=== PATIENT | male | born 1950 | race Caucasian/White ===

== ENCOUNTER 2020-12-22 15:16 | Emergency (ER) | payer MEDICARE, SELFPAY ==
[2020-12-22 15:38] VITALS: BP 139/86; PULSE 93; RESP 16; TEMP 36.9; O2SAT 98
--- NOTE | 2020-12-22 15:44 | ED.WOUNDLAC ---
HPI - Wound/Laceration General Chief Complaint: Wound/Laceration Stated Complaint: facial laceration Time Seen by Provider: 12/22/20 15:44 Source: patient and RN notes reviewed Mode of arrival: ambulatory Limitations: no limitations History of Present Illness HPI narrative: 70 year old male presents to [facility] care with complaints of facial laceration to his left cheek along Zygomatic area where he tripped on area rug and fell and hit face on the floor 2 hours ago. Patient has 3.5cm length by 0.5 cm width laceration on left cheek area. Patient states that his tetanus is up to date, had in 2019. Patient denies any loss of consciousness or any injuries at this time. Patient denies any visual changes, noted bruising under left eye region. Onset (ago): hour(s) (2 hours prior) Location: face Place: home Patient tetanus UTD: Yes Context: accidental Associated symptoms: none Treatments prior to arrival: other (gauze ) Related Data Home Medications Medication Instructions Recorded Confirmed aspirin 81 mg tablet,delayed 81 mg PO DAILY 10/16/19 12/22/20 release duloxetine 60 mg capsule,delayed 60 mg PO DAILY 10/16/19 12/22/20 release ferrous sulfate [Iron (ferrous 325 mg PO DAILY 12/22/20 12/22/20 sulfate)] fexofenadine [Elizabeth] 180 mg PO DAILY 12/22/20 12/22/20 finasteride 5 mg PO DAILY 12/22/20 12/22/20 lisinopril 20 mg PO DAILY 12/22/20 12/22/20 lovastatin 20 mg PO DAILY 12/22/20 12/22/20 nfxmyzcd-ywa-KS-lycopen-lutein 1 tablet PO DAILY 12/22/20 12/22/20 [Centrum Silver Men] topiramate 100 mg PO BID 12/22/20 12/22/20 triamcinolone acetonide [Nasacort] 2 spray INTRANASAL DAILY 12/22/20 12/22/20 Allergies Allergy/AdvReac Type Severity Reaction Status Date / Time Cephalosporins Allergy Intermediate RASH Verified 12/22/20 15:41 Review of Systems Review of Systems: Narrative: CONSTITUTIONAL: Denies fever, chills, or sweats. EYES: Denies visual changes, redness, or discharge. Swelling under left eye with flap laceration over left zygomatic area which occurred 2 hours prior to arrival ENT: Denies rhinorrhea, congestion, sore throat, or otalgia. CARDIOVASCULAR: Denies chest pain, palpitations, or edema. RESPIRATORY: Denies cough or dyspnea. GASTROINTESTINAL: Denies abdominal pain, nausea, vomiting, or diarrhea. GENITOURINARY: Denies dysuria or hematuria. SKIN: Denies rash or itching. MUSCULOSKELETAL: Denies acute back pain, joint pain, or myalgia. NEUROLOGIC: Denies headache, numbness, or weakness. PSYCHIATRIC: Positive for history of anxiety or depression. All systems reviewed & are unremarkable except as noted in HPI and below PMFSH Past Medical History Medical History (Updated 12/24/20 @ 14:44 by Deonna Boyer NP) Chronic anemia Depression Facial laceration Hyperglycemia Hyperlipidemia Hypertension Sleep apnea Surgical History Surgical History (Updated 12/24/20 @ 14:32 by Deonna Boyer NP) Gastric bypass status for obesity History of orthopedic surgery bilateral hips History of spinal surgery Hx of inguinal hernia repair Family History Family History (Updated 12/24/20 @ 14:30 by Deonna Boyer NP) Mother Patient's mother is Grandparent Hypertension Carcinoma of colon Father Lung cancer Social History Social History (Updated 12/24/20 @ 14:30 by Deonna Boyer NP) Smoking status: Former smoker Second hand tobacco smoke exposure: No Smoking end date: 09/19/80 Alcohol intake: current Drinks per week: 2 Substance use: never Living arrangements: alone Gender identity (if verbalized by the patient): Male Comments At time of signature, agree with nursing past medical, surgical, social and family history. There is no relevant family history pertinent to the presenting complaint Exam Narrative: Exam Narrative: GENERAL: Well-appearing, well-nourished, and in no acute distress. HEAD: Normocephalic, atraumatic.laceration under left eye on
== END 2020-12-22 16:40 | disposition home or self-care (01) ==
PROVIDERS: Emergency Provider Registered Nurse; PCP Internal Medicine
DX: S01.412A Laceration without foreign body of left cheek and temporomandibular area, initial encounter (principal); W18.09XA Striking against other object with subsequent fall, initial encounter; Z87.891 Personal history of nicotine dependence; Z98.84 Bariatric surgery status; E78.5 Hyperlipidemia, unspecified; I10 Essential (primary) hypertension; G47.30 Sleep apnea, unspecified; Z79.82 Long term (current) use of aspirin
CPT/HCPCS: 12013; 99213; G0463

== ENCOUNTER 2022-10-29 07:57 | Outpatient (CLI) | payer MEDICARE, SELFPAY | END 2022-10-29 07:58 | disposition home or self-care (01) | PROVIDERS: PCP Internal Medicine; Visit Provider Otolaryngology | DX: H93.13 Tinnitus, bilateral (principal); H90.3 Sensorineural hearing loss, bilateral | CPT/HCPCS: 92557; 92567 ==

== ENCOUNTER 2023-01-26 08:52 | Outpatient (CLI) | payer MEDICARE, SELFPAY ==
--- NOTE | ~2023-01-26 | MR_ITS ---
EXAMINATION: MR brain/brain stem wo con DATE: 01/26/2023 09:32 INDICATION: Ataxia TECHNIQUE: Magnetic resonance imaging (MRI) of the brain and brainstem was performed without intraven ous contrast. Sequences included sagittal and axial T1-weighted SE, axial diffusion-weighted FS SE, a xial 3D SWAN, axial T2-weighted FLAIR, and axial T2-weighted FSE. Apparent diffusion coefficient (ADC ) maps were created. COMPARISON: None. FINDINGS: There are no areas of restricted diffusion to suggest acute infarction. No intracranial hemorrhage or abnormal intracranial mass lesion. There are scattered areas of nonspecific increased T2-weighted si gnal intensity in the cerebral white matter, predominantly involving the deep and periventricular whi te matter which is within normal limits for age. There are no intraparenchymal signal abnormalities s een on the other pulse sequences. The ventricles are symmetric and normal in size. There are no abnor mal extra-axial fluid collections. Flow voids are seen in the cerebral arteries on the T2-weighted se quences consistent with their expected patency. Mild mucosal thickening the paranasal sinuses with mu cous retention cyst at the posterior left maxillary sinus. Visualized orbits and soft tissues are unr emarkable. IMPRESSION: 1. Normal aging brain. No acute intracranial process. Reviewed, dictated and finalized at location A.
== END 2023-01-26 08:53 | disposition home or self-care (01) ==
PROVIDERS: PCP Internal Medicine; Visit Provider Student in an Organized Health Care Education/Training Program
DX: R27.0 Ataxia, unspecified (principal)
CPT/HCPCS: 70551

== ENCOUNTER → 2023-09-02 11:10 | Outpatient (CLI) | payer MEDICARE, SELFPAY ==
--- NOTE | ~2023-09-02 | XR_ITS ---
EXAMINATION: XR hand BI arthritis min 3V DATE: 09/02/2023 11:40 INDICATION: Unspecified osteoarthritis, unspecified site. TECHNIQUE: 4 views of right hand and 4 views of left hand on a total of 7 radiographs were obtained. COMPARISON: None. FINDINGS: RIGHT HAND: Bone alignment is normal. No fracture. There is moderate osteoarthritis of distal radioul lorrie joint, severe osteoarthritis of triscaphe joint, moderate osteoarthritis of second metacarpophala ngeal joint, and mild osteoarthritis of many of the other metacarpophalangeal joints and interphalang eal joints. There is heterotopic ossification at radial aspect of fourth distal interphalangeal joint . LEFT HAND: Bone alignment is normal. No fracture. There is mild osteoarthritis of triscaphe joint and first carpometacarpal joint. There is moderate osteoarthritis of first-third metacarpophalangeal gio nts and mild osteoarthritis of many of the interphalangeal joints. IMPRESSION: 1. Polyarticular osteoarthritis. Reviewed, dictated and finalized at location A. WINDER REPAIR
== END ==
PROVIDERS: PCP Internal Medicine; Visit Provider Internal Medicine
DX: R89.9 Unspecified abnormal finding in specimens from other organs, systems and tissues (principal); Z71.89 Other specified counseling; Z79.899 Other long term (current) drug therapy; M19.041 Primary osteoarthritis, right hand; M19.042 Primary osteoarthritis, left hand
CPT/HCPCS: 73130

== ENCOUNTER 2024-05-25 08:39 | Outpatient (CLI) | payer MEDICARE, SELFPAY ==
--- NOTE | ~2024-05-25 | US_ITS ---
Renal-Bladder ultrasound Clinical History: Chronic kidney disease Technique: Real-time sonographic imaging of the kidneys and urinary bladder was performed. Findings: The right kidney measures 10.1 cm in length and the left kidney measures 10.7 cm. There is no hydronephrosis or renal calculus identified. Renal cortical echogenicity is within normal limits. No renal mass lesion is identified. The urinary bladder is moderately distended at the time of this exam. No intraluminal echoes are iden tified. No abnormal wall thickening is seen. Impression: Unremarkable ultrasound of the kidneys and urinary bladder. Reviewed, dictated and finalized at location M. Impression: Unremarkable ultrasound of the kidneys and urinary bladder.
== END 2024-05-25 08:40 | disposition home or self-care (01) ==
LOC: GOSHIMG 08:43
PROVIDERS: PCP Internal Medicine; Visit Provider Internal Medicine Nephrology
DX: N18.31 Chronic kidney disease, stage 3a (principal)
CPT/HCPCS: 76775

== ENCOUNTER 2024-05-25 08:43 | Outpatient (CLI) | payer MEDICARE, SELFPAY ==
--- NOTE | ~2024-05-25 | MR_ITS ---
MRI of the thoracic spine Clinical History: Multiple falls Technique: Axial T2-weighted and gradient images, and sagittal T1-weighted, T2-weighted, and STIR vanna ges were acquired. Findings: There is no fracture or subluxation of the thoracic spine. Vertebral bodies maintain normal height and line. No suspicious bone marrow signal abnormality seen. There is moderate to advanced de generative disc narrowing throughout the thoracic spine, especially the upper and mid aspects. No sig nificant disc bulge or herniation identified. No spinal canal stenosis or cord compression identified in the thoracic level. There are advanced facet joint degenerative changes at the lower thoracic spi ne. There is left neural foraminal narrowing at T10-T11 and T11-T12. Remaining neural foramina are re latively well-preserved. No abnormal signal seen in the spinal cord. Paravertebral soft tissues are unremarkable. Impression: Extensive degenerative disc narrowing with left neural foraminal narrowing at T10-T11 and T11-T12. No spinal canal stenosis or cord compression. No fracture or subluxation. Reviewed, dictated and finalized at [facility]. Impression: Extensive degenerative disc narrowing with left neural foraminal narrowing at T 10-T11 and T11-T12. No spinal canal stenosis or cord compression. No fracture or subluxation.
--- NOTE | ~2024-05-25 | MR_ITS ---
MRI of the lumbar spine Clinical History: Multiple falls Technique: Axial T2-weighted images, and sagittal T1-weighted, T2-weighted, and T2 fat-sat images wer e acquired. Findings: There is 3 mm retrolisthesis of L1 over L2. There is 2 mm retrolisthesis of L2 over L3. The re is 3 mm retrolisthesis of L3 over L4. There is fusion across the L4-L5 disc space. No fracture faith dent. No suspicious bone marrow signal abnormality seen. At L1-L2, there is advanced degenerative disc narrowing. There is diffuse disc bulge and mild to mode rate facet arthropathy. No central canal stenosis or neural foraminal narrowing. At L2-L3, there is severe degenerative disc narrowing. There is mild disc bulge with severe facet art hropathy. No central canal stenosis. Probable prior posterior decompression. There is moderate to adv anced right neural foraminal narrowing. Left neural foramen preserved. At L3-L4, there is advanced degenerative disc narrowing. There is diffuse disc bulge and severe facet arthropathy, severe spinal canal stenosis/thecal sac compression. There is severe right neural srikanth inal, place. There is mild to moderate left neural foraminal comprise. At L4-L5, there is posterior osteophyte complex and facet arthropathy with posterior decompression. N o lucero spinal canal stenosis. There is severe bilateral neuroforaminal, or mass. At L5-S1, there is severe degenerative disc narrowing with diffuse disc bulge, severe facet arthropat hy, and prior posterior decompression. No spinal canal stenosis. There is severe bilateral neural for aminal narrowing. Paravertebral soft tissues are unremarkable, aside from expected postoperative change. Impression: Fusion across the L4-L5 disc space with prior posterior decompression at L4-L5. Severe degenerative spondylosis, as detailed above. There is multilevel advanced neural foraminal lorrie rowing and severe spinal canal stenosis at L3-L4. Multiple grade 1 listheses, as above. Reviewed, dictated and finalized at location M. Impression: Fusion across the L4-L5 disc space with prior posterior decompression at L4-L5. Severe degenerative spondylosis, as detailed above. There is multilevel advance d neural foraminal narrowing and severe spinal canal stenosis at L3-L4. Multiple grade 1 listheses, as above.
--- NOTE | ~2024-05-25 | MR_ITS ---
MRI of the cervical spine Clinical History: Multiple falls Technique: Axial T2-weighted and gradient images, and sagittal T1-weighted, T2-weighted, and STIR vanna ges were acquired. Findings: There is straightening of the normal cervical lordosis. No fracture identified. There is 3 mm anterolisthesis of C7 over T1. No suspicious bone marrow signal abnormality seen. At C2-C3, there is no disc bulge or herniation. No spinal canal stenosis. There is bilateral facet ar thropathy, right worse than left, with right neural foraminal narrowing and possible minimal left north ral foraminal narrowing. At C3-C4, there is advanced degenerative disc narrowing with mild disc osteophyte convex. There is mi nimal canal stenosis without lucero cord compression. There is bilateral neural foraminal narrowing wi th bilateral facet arthropathy. At C4-C5, there is advanced degenerative disc narrowing. There is mild disc osteophyte complex, with mild canal stenosis but no lucero cord compression. There is severe right neural foraminal narrowing w ith right facet arthropathy. Possible minimal left neural foraminal narrowing. At C5-C6, there is minimal disc osteophyte complex. There is mild right neural foraminal narrowing. L eft neural foramen probably intact. At C6-C7, there is advanced degenerative disc narrowing. There is minimal disc bulge. No canal stenos is or cord compression. There is mild bilateral neural foraminal narrowing. No abnormal signal seen in the spinal cord. Paravertebral soft tissues are unremarkable. Impression: Moderate degenerative spondylosis, as detailed above. 3 mm anterolisthesis of C7 over T1. Reviewed, dictated and finalized at location . Impression: Moderate degenerative spondylosis, as detailed above. 3 mm anterolisthesis of C7 over T1.
== END 2024-05-25 08:44 | disposition home or self-care (01) ==
PROVIDERS: PCP Internal Medicine; Visit Provider Psychiatry & Neurology Neurology
DX: R29.6 Repeated falls (principal); R26.9 Unspecified abnormalities of gait and mobility; Z98.1 Arthrodesis status; M47.896 Other spondylosis, lumbar region; M47.892 Other spondylosis, cervical region
CPT/HCPCS: 72141; 72146; 72148

== ENCOUNTER 2024-05-28 07:51 | Outpatient (CLI) | payer MEDICARE, SELFPAY ==
[2024-05-31 11:05] LABS: Vitamin D 1,25 (OH)2 Total 45 pg/mL (18-72); Vitamin D2 1,25 (OH)2 <8 pg/mL; Vitamin D3 1,25 (OH)2 45 pg/mL
[2024-05-31 20:18] LABS: Immunofixation, Serum Normal pattern.
[2024-06-01 04:59] LABS: Methylmalonic Acid 174 nmol/L (69-390)
[2024-06-05 10:13] LABS: Vitamin B1 178 nmol/L (8-30)
== END 2024-05-28 07:52 | disposition home or self-care (01) ==
PROVIDERS: PCP Internal Medicine; Visit Provider Psychiatry & Neurology Neurology
DX: R53.83 Other fatigue (principal); E53.8 Deficiency of other specified B group vitamins; I42.9 Cardiomyopathy, unspecified; E78.5 Hyperlipidemia, unspecified; R73.9 Hyperglycemia, unspecified; N18.31 Chronic kidney disease, stage 3a; G95.9 Disease of spinal cord, unspecified; R29.6 Repeated falls; G62.9 Polyneuropathy, unspecified; E55.9 Vitamin D deficiency, unspecified
CPT/HCPCS: 36415; 82652; 83921; 84207; 84425; 86334

== ENCOUNTER 2025-04-25 09:50 | Outpatient (CLI) | payer MEDICARE, SELFPAY ==
--- OUTSIDE RECORDS SUMMARY | 2025-04-25 09:58 | XMS_ITS | Clinical Summary ---
Author Organization [facility] [address] Address [address] [place] [address] Care Team Providers Care Straw Hat Brim Raiser Operator Name Role Phone Rogelio Snell MD Unavailable [phone] John Montejo DO Primary Care Provider Allergies Active Allergy Reactions Criticality Noted Date Comments Adhesive Rash,Blisters High 07/22/2011 Cephalexin Itching,Rash Medium 09/29/2009 Arms; Patient may still be a candidate for other cephalosporins (like cefazolin) - please investigate & update findings here Medications DULoxetine DR (CYMBALTA) 60 mg capsule Take 1 capsule (60 mg total) by mouth 2 (two) times a day 0 9 Active finasteride (PROSCAR) 5 mg tablet Take 1 tablet (5 mg total) by mouth nightly 5 9 Active lovastatin (MEVACOR) 20 mg tablet Take 1 tablet (20 mg total) by mouth nightly Active triamcinolone (NASACORT) 55 mcg nasal inhaler Administer 2 sprays into each nostril daily Active ferrous sulfate 325 mg (65 mg of elemental iron) tablet Take 1 tablet (325 mg total) by mouth every 3 (three) days 0 Active sildenafiL (VIAGRA) 100 mg tablet Take 1 tablet (100 mg total) by mouth daily as needed for erectile dysfunction Active Entresto 49-51 mg tablet Take 1 tablet by mouth 2 (two) times a day 3 Active empagliflozin (JARDIANCE) 10 mg tablet Take 1 tablet (10 mg total) by mouth nightly Active traZODone (DESYREL) 50 mg tablet Take 1 tablet (50 mg total) by mouth nightly 3 Active carvediloL (COREG) 3.125 mg tablet Take 1 tablet (3.125 mg total) by mouth 2 (two) times a day 4 Active topiramate (TOPAMAX) 100 mg tablet Take 1 tablet (100 mg total) by mouth 2 (two) times a day Active thiamine (VITAMIN B1) 100 mg tablet Take 1 tablet (100 mg total) by mouth daily Active aspirin 81 mg enteric coated tabletIndicati ons:Deep Vein Thrombosis Prevention Take 1 tablet (81 mg total) by mouth 2 (two) times a day 60 tablet 4 025 Active Wegovy 0.25 mg/0.5 mL auto-injector INJECT 0.25MG SUBCUTANEOUSLY ONCE A WEEK Active Active Problems Problem Noted Date Diagnosed Date Primary osteoarthritis of right knee 06/18/2024 Primary osteoarthritis of left knee 08/25/2023 Hemarthrosis of left elbow 03/04/2021 Overview (03/04/2021): Added automatically from request for surgery [id number] Loose body in left elbow 03/04/2021 Overview (03/04/2021): Added automatically from request for surgery [id number] Daytime somnolence 08/18/2016 Insomnia 08/18/2016 Obstructive sleep apnea syndrome 11/09/2010 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 Hypertension 10/29/2010 Class 2 obesity due to exces s calories with body mass index (BMI) of 35.0 to 35.9 in adult 04/01/2010 Immunizations Immunization Administration Dates Next Due Influenza, Unspecified 06/19/2024 Surgical History Surgery Date Site/Laterality Comments GASTRIC BYPASS TOTAL HIP ARTHROPLASTY Bilateral HERNIA REPAIR ELBOW ARTHROSCOPY POSTERIOR FUSION LUMBAR SPINE L4-5 FL FLUORO GUIDED LUMBAR PUNCTURE 01/16/2016 Right Medical History Medical History Date Comments PEYTON on CPAP Obesity (BMI 35.0-39.9 without comorbidity) BMI 38 Hypertension BPH (benign prostatic hyperplasia) Iron deficiency anemia Depression Primary osteoarthritis of right knee Obesity Social History Tobacco Use Types Packs/Day Years Used Date Smoking Tobacco: Former Cigarettes Q uit: 1981 Smokeless Tobacco: Never Tobacco Cessation:Counseling Given: Not Answered AUDIT-C Answer Date Recorded Q1: How often do you have a drink containing alcohol? Never 08/02/2024 Q2: How many drinks containi ng alcohol do you have on a typical day when you are drinking? Patient does not drink Q3: How often do you have si x or more drinks on one occasion? Never 08/02/2024 Personal Safety Answer Date Recorded Have you ever been in or are you currently in a harmful physical or emotional relationship or is someone making you feel afraid or unsafe? Denies 08/02/2024 Sex and Gender Information Value Date Recorded Sex Assigned at Not on file Legal Sex Male 2:20 AM FLOOR MECHANIC Gender Identity Male 03/09/2021 1:09 PM CDT Sexual Orientation Straight 03/09/2021 1: 09 PM CDT Obstetrics History Last Filed Vital Signs Vital Sign Reading Time Taken Comments Blood Pressure 102/55 08/03/2024 9:20 AM FLOOR MECHANIC Pulse 77 08/03/2024 9:20 AM FLOOR MECHANIC Temperature 36.7 C (98 F) 08/03/2024 9:20 AM FLOOR MECHANIC Respiratory Rate 16 08/03/2024 9:20 AM FLOOR MECHANIC Oxygen Saturation 100% 08/03/2024 9:20 AM FLOOR MECHANIC Inhaled Oxygen Concentration - - Weight 110.7 kg (244 lb) 01/08/2025 2:42 PM CDT stated Height 172.7 cm (5' 8) 01/08/2025 2:42 PM CDT Body Mass Index 37.1 01/08/2025 2:42 PM CDT Plan of Treatment Health Maintenance Due Date Last Done Comments Colon Cancer Screening-Colonoscopy 1950 Depression Screening 1950 Hepatitis C Screening 1950 Hepatitis B Screening 1970 Zoster Vaccine (1 of 2) 2002 Abdominal Aortic Aneurysm (A AA) Screen 2017 Well Visit 65+ 2017 Pneumococcal vaccine 65+ (2 of 2 - PCV) 07/06/2019 07/06/2018 Influenza Vaccine (#1) 2025 4, 07/06/2018, 07/29/2014, Additional history exists Fall Risk Assessment 08/03/2025 08/03/2024 DTaP/Tdap/Td Vaccine (3 - Td or Tdap) 03/03/2029 03/03/2019, 02/11/2018 Medical Devices Implanted Type Area Baby Formula Worker Device Identifier Shelf Expiration Date Model / Serial / Lot [employer] Pal[place]os R High Viscosity Cement 40gm Bone Green [id number] - [id number] Implanted:Qty : 1 on 09/29/2023 by Rogelio Snell MD at [facility] Bone Cement Left: Knee [employer] 10/19/2027 [id number] / / [id number] [employer] [place] R High Viscosity Cement 40gm Bone Green [id number] - [id number] Implanted:Qty : 1 on 08/02/2024 by Rogelio Snell MD at [facility] Bone Cement Right: Knee [employer] [id number] 08/18/2028 [id number] / / [id number] [employer] /Ortho Journey Bicruciate Stabilized Left Knee 5 Baseplate Tibial [id number] - [id number] Implanted:Qty : 1 on 09/29/2023 by Rogelio Snell MD at [facility] Left: Knee [employer]/O rtho [id number] 07/01/2033 [id number] / / [id number] [employer] /Ortho Journey Ii Cruciate Retain Knee Left 6 Component Femoral Oxinium [id number] - [id number] Implanted:Qty : 1 on 09/29/2023 by Rogelio Snell MD at [facility] Left: Knee [employer]/O rtho [id number] 04/24/2033 [id number] / / [id number] [employer] /Ortho Insert Tibial Knee Fixed Lm Articular Journey Ii 10mm Size 5-6 Xlpe [id number] - [id number] Implanted:Qty : 1 on 09/29/2023 by Rogelio Snell MD at [facility] Left: Knee [employer] r[employer]o [id number] 05/24/2033 [id number] / / [id number] [employer] /Ortho Journey Bicruciate Stabilize Knee Right 5 Baseplate Tibial [id number] - [id number] Implanted:Qty : 1 on 08/02/2024 by Rogelio Snell MD at [facility] Right: Knee [employer]o [id number] 03/10/2034 [id number] / / [id number] [employer] /Ortho Journey Ii Cruciate Retaining Knee Right 6 Component Femoral [id number] - [id number] Implanted:Qty : 1 on 08/02/2024 by Rogelio Snell MD at [facility] Right: Knee [employer]o [id number] 03/31/2034 [id number] / / [id number] [employer] /Ortho Insert Tibial Knee Fixed Rm Articular Journey Ii 9mm Size 5-6 Xlpe [id number] - [id number] Implanted:Qty : 1 on 08/02/2024 by Rogelio Snell MD at [facility] Right: Knee [employer]O rtho [id number] 04/12/2034 [id number] / / [id number] Insurance MEDICARE [facility] MEDICARE SUPPLEMENT MEDICARE [facility] MEDICARE SUPPLEMENT Advance Directives For more information, please contact: [phone] * Full Code (Latest Code Status on File) Date Activated Date Inactivated Comments 08/02/2024 11:29 AM 08/03/2024 4:47 PM * Full Code Date Activated Date Inactivated Comments 09/29/2023 2:46 PM 09/30/2023 4:43 PM Care Teams Straw Hat Brim Raiser Operator Relationship Specialty Start Date End Date John Montejo DO [address] [place] [address] PCP - General Internal Medicine 04/17/24 Rogelio Snell MD [address] [facility] [address] [place] [address] Surgeon Orthopedic Surgery 12/31/20
--- OUTSIDE RECORDS SUMMARY | 2025-04-25 09:58 | XMS_ITS | Clinical Summary ---
Author Organization [facility] Address [address] [address] Phone Care Team Providers Care Operator Bearer Systems Name Role Phone Kevin Jackman DO Primary Care Provider Allergies Active Allergy Reactions Criticality Noted Date Comments Cephalexin Rash,Itching 11/21/2018 arms Medications No known medications Family History Medical History Relation Name Comments Cancer Father lung, Heart Attack Father Cancer Mother fillopian tube Relation Name Status Comments Father Mother Social History Tobacco Use Types Packs/Day Years Used Date Smoking Tobacco: Former Cigarettes Q uit: 11/21/1980 Smokeless Tobacco: Never Alcohol Use Standard Drinks/Week Comments Yes 0 (1 standard drink = 0.6 oz pur e alcohol) Sex and Gender Information Value Date Recorded Sex Assigned at Not on file Legal Sex Male 11:40 PM CDT Gender Identity Not on file Sexual Orientation Not on file Last Filed Vital Signs Vital Sign Reading Time Taken Comments Blood Pressure - - Pulse - - Temperature - - Respiratory Rate - - Oxygen Saturation - - Inhaled Oxygen Concentration - - Weight 117 kg (258 lb) 11/29/2018 9:00 AM CDT Height 172.7 cm (5' 8) 11/29/2018 9:00 AM CDT Body Mass Index 39.23 11/29/2018 9:00 AM CDT Plan of Treatment Health Maintenance Due Date Last Done Comments Hepatitis C Virus (HCV) Screening 1950 TdaP Immunization 1950 Cologuard 1997 Immunochemical Fecal Occult Blood 1997 Pneumococcal Immunization (5 0+ years) (1 of 1 - PCV) 2002 Zoster Immunization (1 of 2) 2002 SARS-COV-2 Immunization ( - season) 2024 Influenza Immunization (#1) 2025 Respiratory Syncytial Virus (RSV) Immunization (Adult) (1 - 1-dose 75+ series) 2027 Colonoscopy 12/28/2028 12/28/2018 Colorectal Cancer Screening 12/28/2028 Hepatitis B Immunization Aged Out No longer eligible based on patient's age to complete this topic Human Papillomavirus (HPV) Immunization Aged Out No longer eligible b ased on patient's age to complete this topic Meningococcal Immunization (ACWY) Aged Out No longer eligible based on patient's age to complete this topic Rotavirus Immunization Aged Out No lo nger eligible based on patient's age to complete this topic Procedures Procedure Name Priority Date/Time Associated Diagnosis Comments COLONOSCOPY Routine 12/28/2018 from Last 3 Months or Most Recently Relevant to Health Maintenance Results * COLONOSCOPY (12/28/2018) Moustapha Massey DO PROCEDURE/MINOR SURGICAL ORDERA BLES Final Result from Last 3 Months or Most Recently Relevant to Health Maintenance Insurance MEDICARE [employer] Care Teams Operator Bearer Systems Relationship Specialty Start Date End Date Kevin Jackman DO [address] [place] [id number] PCP - General Internal Medicine 11/16/18
--- OUTSIDE RECORDS SUMMARY | 2025-04-25 09:58 | XMS_ITS | Clinical Summary ---
Author Organization [facility] Address [address] [facility] [address] [place] [address] Care Team Providers Care Die Tripper Name Role Phone Gasper Kevin Gonzalez DO Primary Care Provider [phone] Source Comments [facility],non-owned Affiliates and Associated Physician Practices is amultiple site organization consisting of ambulatory clinics and hospital sitesin [place], [place], [place] and [place]. This disclosure is being madepursuant to the Care Everywhere program and may not contain all information available regarding this patient. Last updated 18.[facility] Allergies Active Allergy Reactions Criticality Noted Date Comments Adhesive Sensitivity Skin Reactions 07/04/2018 Cephalexin Rash Medium 12/27/2014 Medications * Be aware that medications may not be up to date on this document. Alwaysverify current medications with the patient. lisinopril (PRINIVIL; ZESTRIL) 40 MG tablet Take 40 mg by mouth once daily Active DULoxetine (CYMBALTA) 60 MG capsule Take 60 mg by mouth once daily Active carvedilol (COREG) 6.25 MG tablet Take 6.25 mg by mouth once daily Active topiramate (TOPAMAX) 100 MG tablet Take 100 mg by mouth once daily Active LORazepam (ATIVAN) 0.5 MG tablet Take 1 mg by mouth at bedtime Active finasteride (PROSCAR) 5 MG tablet Take 5 mg by mouth at bedtime Active lovastatin (MEVACOR) 20 MG tablet Take 20 mg by mouth once daily Active chlorthalidone (HYGROTON) 25 MG tablet Take 25 mg by mouth once daily Active aspirin (ASPIRIN) 81 MG tablet Take 81 mg by mouth once daily Active Multiple Vitamins-Mineral s (CENTRUM SILVER 50+MEN PO) Take 1 tablet by mouth once daily Active Cyanocobalamin (B-12) 5000 MCG Take 1 tablet by mouth once daily Active Fexofenadine-Pse udoephedrine (MATTEO-D 24 HOUR PO) Take 180 mg by mouth once daily Active triamcinolone (NASACORT AQ) 55 MCG/ACT nasal inhaler [place] 2 sprays into each nostril once daily Active docusate sodium (COLACE) 100 MG capsuleIndicatio ns:Spinal stenosis of lumbar region with neurogenic claudication,Cla ss 1 obesity due to excess calories with serious comorbidity in adult, unspecified BMI Take 1 capsule by mouth once daily 30 capsule 07/28/2018 Active polyethylene glycol 3350 (MIRALAX) packetIndication s:Spinal stenosis of lumbar region with neurogenic claudication,Cla ss 1 obesity due to excess calories with serious comorbidity in adult, unspecified BMI Take 17 g by mouth once daily 30 packet 07/28/2018 Active Active Problems Problem Noted Date Diagnosed Date Pre-operative clearance 07/04/2018 Spinal stenosis of lumbar re gion with neurogenic claudication 06/21/2018 Other biomechanical lesions of lumbar region 11/2014 Postlaminectomy syndrome, not elsewhere classifi ed 12/27/2014 Obesity 12/27/2014 Immunizations Immunization Administration Dates Next Due INFLUENZA VACCINE, HIGH-DOSE , QUADR. 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 Gender Identity Not on file Sexual Orientation Not on file Last Filed Vital Signs Vital Sign Reading Time Taken Comments Blood Pressure 106/67 07/27/2018 3:30 PM HOUSE MOVER HELPER Pulse 79 07/27/2018 3:30 PM HOUSE MOVER HELPER Temperature 36.7 C (98 F) 07/27/2018 3:30 PM HOUSE MOVER HELPER Respiratory Rate 18 07/27/2018 3:30 PM HOUSE MOVER HELPER Oxygen Saturation 100% 07/27/2018 3:30 PM HOUSE MOVER HELPER Inhaled Oxygen Concentration 21% 05/01/2018 9 :58 AM CDT Weight 116.1 kg (256 lb) 12/21/2018 12:03 PM CDT Height 175.3 cm (5' 9) 12/21/2018 12:03 PM CDT Body Mass Index 37.8 12/21/2018 12:03 PM CDT Plan of Treatment Health Maintenance Due Date Last Done Comments COLOGUARD (AGES 45-75) - COLON CA SCREENING 1950 COLON MONITORING 1950 COLONOSCOPY - COLON CA SCREENING 1952 CT COLONOGRAPHY - COLON CA SCREENING 1950 Colorectal Cancer Screening 1950 FIT - COLON CA SCREENING 1950 FLEX SIG - COLON CA SCREENING 1950 MEDICARE AWV 12 MONTHS 1950 HEPATITIS C SCREENING 04/24/1970 PNEUMOCOCCAL VACCINE 50+ (1 of 1 - PCV) 2002 ZOSTER VACCINE (1 of 2) 2002 AAA SCREENING 2017 COVID-19 VACCINE (1 - season) 2024 DEPRESSION SCREENING 09/19/2024 INFLUENZA VACCINE (#1) 2025 0, 07/29/2014, 06/19/2012, Additional history exists Respiratory Syncytial Virus (RSV) Vaccine Pt: or over 60 yrs (1 - 1-dose 75+ series) 2027 DTAP/TDAP/TD VACCINES (2 - Td or Tdap) 03/03/2029 03/03/2019 HEPATITIS B VACCINE Aged Out No longe r eligible based on patient's age to complete this topic HIB VACCINE Aged Out No longer eligi ble based on patient's age to complete this topic HPV VACCINE Aged Out No longer eligi ble based on patient's age to complete this topic MENINGOCOCCAL (Group B) VACCINE SHARED DECISION-MAKING Aged Out No longer eligible based on patient's age to complete this topic MENINGOCOCCAL GROUPS A/C/Y/W VACCINE Aged Out No longer eligible based on patient's age to complete this topic Insurance MEDICARE [facility] MEDIC[facility] Advance Directives * Full Code (Latest Code Status on File) Date Activated Date Inactivated Comments 07/25/2018 3:12 PM 07/27/2018 6:14 PM * Full Code Date Activated Date Inactivated Comments 07/25/2018 5:48 AM 07/25/2018 3:10 PM Care Teams Die Tripper Relationship Specialty Start Date End Date Kevin Jackman DO [address] [facility] [address] [address] PCP - General 03/20/18
--- OUTSIDE RECORDS SUMMARY | 2025-04-25 09:58 | XMS_ITS | Encounter Summary ---
Author Organization [facility] Address [address] [place] [address] Phone Care Team Providers Care Inspector Filter Tip Name Role Phone Kevin Jackman MD Primary Care Provider [phone] Rogelio Snell MD Unavailable [phone] [place] Primary Care Provider John Montejo DO Primary Care Provider [phone] Encounter Details Date Type Department Care Team (Latest Contact Info) Description 09/20/2019 Orders Only [facility] SLEEP Scanning, Provider Social History Tobacco Use Types Packs/Day Years Used Date Smoking Tobacco: Former Smokeless Tobacco: Never Sex and Gender Information Value Date Recorded Sex Assigned at Not on file 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 Gender Identity Male 03/09/2021 1:09 PM CDT Sexual Orientation Straight 03/09/2021 1: 09 PM CDT documented as of this encounter Plan of Treatment Not on file documented as of this encounter Procedures Procedure Name Priority Date/Time Associated Diagnosis Comments SLEEP LAB/STUDY - RESULT 09/20/2019 documented in this encounter Results * SLEEP LAB/STUDY - RESULT (09/20/2019) us Provider Scanning Final Result documented in this encounter Visit Diagnoses Not on filedocumented in this encounter Care Teams Inspector Filter Tip Relationship Specialty Start Date End Date Kevin Jackman MD [address] [place] [address] PCP - General 05/29/15 08/18/23 [place] PA [address] [place] [address] PCP - General Physician Budget And Policy Analyst 08/19/23 04/16/24 John Montejo DO [address] [place] [address] PCP - General Internal Medicine 04/17/24 Rogelio Snell MD [address] [facility] [address] [place] [address] Surgeon Orthopedic Surgery 12/31/20 documented as of this encounter
--- OUTSIDE RECORDS SUMMARY | 2025-04-25 09:58 | XMS_ITS | Clinical Summary ---
Author Organization [facility] Address [address] [place] [address] Phone Care Team Providers Care Extractor And Wringer Operator Name Role Phone Kevin Jackman DO Primary Care Provider [phone] Allergies Active Allergy Reactions Criticality Noted Date Comments Adhesive Other (See Comments) 07/22/2011 blisters Cephalexin Rash Medium 09/29/2009 Medications alprazolam (XANAX) 0.25 mg Oral tablet Take 0.025 mg by mouth nightly as needed. Does not take on the nights that takes lunesta Active duloxetine (CYMBALTA) 60 mg Oral CpDR Take 60 mg by mouth daily. Active fluoxetine (PROZAC) 20 mg Oral Cap Take 40 mg by mouth daily at bedtime. Active eszopiclone (LUNESTA) 2 mg Oral Tab Take 2 mg by mouth nightly as needed. Alternated with xanax Active amlodipine (NORVASC) 5 mg Oral tablet Take 5 mg by mouth daily. Active benazepril (LOTENSIN) 20 mg Oral tablet Take 20 mg by mouth daily. Active tamsulosin SR 24 hour (FLOMAX) 0.4 mg Oral Cp24 Take 0.4 mg by mouth daily. [facility] Active finasteride (PROSCAR) 5 mg Oral tablet Take 5 mg by mouth Daily LATE. 1 Active LORazepam (ATIVAN) 0.5 mg Oral tablet Take 1 mg by mouth Daily LATE. 1 Active lisinopril (PRINIVIL) 20 mg Oral tablet Take 40 mg by mouth daily. Active oxyCODONE-aceta minophen (PERCOCET) 10-325 mg Oral Tab Take 1 Tab by mouth every 4 hours as needed for Pain, Severe (For Pain Scale 7-10). 50 Tab 0 1 Active cyanocobalamin (VITAMIN B-12) 100 mcg Oral tablet Take 1,000 mcg by mouth daily. Active ETODOLAC ORAL Take 400 mg by mouth 2 times daily. Active diazepam (VALIUM) 5 mg Oral tablet Take 1 Tab by mouth every 6 hours as needed for Spasm. 90 Tab 0 2 Active oxyCODONE-aceta minophen (PERCOCET) 10-325 mg Oral Tab Take 2 Tabs by mouth every 4 hours as needed for Pain, Severe. 120 Tab 0 2 Active oxyCODONE-aceta minophen (PERCOCET) 10-325 mg Tablet Take 1 Tab by mouth every 4 hours as needed for Pain, Severe. 90 Tab 0 4 Active diazepam (VALIUM) 5 mg tablet Take 1 Tab by mouth every 6 hours as needed for Anxiety. 90 Tab 0 4 Active ARIPiprazole (ABILIFY) 5 mg tablet Take 5 mg by mouth daily. Active HYDROcodone-david taminophen (NORCO) 5-325 mg tablet Take 1 Tab by mouth every 4 hours as needed for Pain, Moderate. Active Active Problems Problem Noted Date Diagnosed Date Unspecified essential hypertension 07/19/2012 BPH (benign prostatic hyperplasia) 07/19/2012 DJD (degenerative joint disease) 07/19/2012 PEYTON (obstructive sleep apnea) 07/19/2012 H/O gastric bypass 07/19/2012 Arthritis, hip 09/29/2009 Immunizations Immunization Administration Dates Next Due Influenza Seasonal Unspecifi ed Formulation IM 07/29/2014,06/19/2012,06/19/2011 Social History Tobacco Use Types Packs/Day Years Used Date Smoking Tobacco: Former Cigarettes Q uit: 09/18/1981 Comments:14 pack years Alcohol Use Standard Drinks/Week Comments Yes 5 (1 standard drink = 0.6 oz pur e alcohol) Sex and Gender Information Value Date Recorded Sex Assigned at Not on file 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 Gender Identity Not on file Sexual Orientation Not on file Occupation Industry Job Start Date Job End Date Not on file Not on file Not on file Not on file Last Filed Vital Signs Vital Sign Reading Time Taken Comments Blood Pressure 155/82 12/31/2014 2:46 PM CDT Pulse 65 12/31/2014 2:46 PM CDT Temperature 36.6 C (97.8 F) 12/31/2014 2:46 PM CDT Respiratory Rate 16 12/31/2014 2:46 PM CDT Oxygen Saturation 97% 12/31/2014 2:46 PM CDT Inhaled Oxygen Concentration - - Weight 126.1 kg (278 lb) 12/31/2014 8:12 AM CDT Height 172.7 cm (5' 8) 12/31/2014 8:12 AM CDT Body Mass Index 42.27 12/31/2014 8:12 AM CDT Plan of Treatment Health Maintenance Due Date Last Done Comments DTAP/TDAP/TD VACCINES (1 - Tdap) 1971 COLORECTAL SCREENING 1997 Colorectal Cancer Screening 1997 FIT-DNA Q 3 years 1997 FIT/FOBT Q 1 year 1997 Flex Sig/CT Colonography Q 5 years 1997 PNEUMOCOCCAL VACCINE 50+ YEA RS (1 of 1 - PCV) 2002 ZOSTER VACCINE (1 of 2) 2002 INFLUENZA VACCINE (#1) 2025 , 06/19/2012, 06/19/2011 RSV VACCINE (60+ or ) (1 - 1-dose 75+ series) 2027 Medical Devices Implanted Type Area Vp Ancillary Device Identifier Shelf Expiration Date Model / Serial / Lot Sealant Floseal 10ml [id number] - [id number] Implanted:Qty : 1 on 07/19/2012 by Parminder Garrett MD at [facility] Biological N/A: Spine Lumbar ROCHA- BIOSCIENCE 11/15/2013 [id number] / / [id number] Infuse Protein Kit [id number] - [id number] Implanted:Qty : 1 on 07/19/2012 by Parminder Garrett MD at [facility] Biological N/A: Spine Lumbar MED[employer]- SOFAMOR DANEK 02/16/2015 [id number] / / [id number] Sealant Floseal 10ml [id number] - [id number] Implanted:Qty : 1 on 07/19/2012 by Parminder Garrett MD at [facility] Biological N/A: Spine Lumbar ROCHA- BIOSCIENCE 11/16/2013 [id number] / / [id number] Infuse Protein Kit [id number] - [id number] Implanted:Qty : 1 on 09/04/2014 by Parminder Garrett MD at [facility] Biological N/A: Spine Lumbar [employer]- SOFAMOR DANEK 09/24/2015 [id number] / / [id number] Bone Chips Canc 30ml [id number] - [id number] Implanted:Qty : 1 on 07/19/2012 by Parminder Garrett MD at [facility] Bone N/A: Spine Lumbar [employer]OSOURCE 08/22/2016 [id number] / [id number] / Bone Chips Canc 30ml [id number] - [id number] Implanted:Qty : 1 on 09/04/2014 by Parminder Garrett MD at [facility] Bone N/A: Spine Lumbar [employer]OURCE 03/24/2018 [id number] / [id number] / Shell Univ 2hole 60mm [id number] Implanted:Qty : 1 on 10/02/2009 at [facility] Hip Left: Hip [employer] 10/20/2017 [id number] / / [id number] Screw Canc Lopro 6.5x35mm [id number] Implanted:Qty : 1 on 10/02/2009 at [facility] Hip Left: Hip [employer] 11/17/2017 [id number] / / [id number] Stem Collar Por [id number] Implanted:Qty : 1 on 10/02/2009 at [facility] Hip Left: Hip [employer] 08/19/2019 [id number] / / [id number] Liner Epoly Hi-Wall 40mm Sz25 [id number] Implanted:Qty : 1 on 10/02/2009 at [facility] Hip Left: Hip [employer] 05/20/2012 [id number] / / [id number] Log [id number] - Biomet Hip Primary Acetabular Components - 1 - Shell Ringlc+ Pc 62mm [id number] Implanted:Qty : 1 on 08/17/2011 at [facility] Hip Right: Hip [employer] 06/18/2020 [id number] / / [id number] Log [id number] - Biomet Hip Primary Acetabular Components - 1 - Liner Epoly Hi-Wall 40mm Sz26 [id number] Implanted:Qty : 1 on 08/17/2011 at [facility] Hip Right: Hip [employer] 11/18/2015 [id number] / / [id number] Log [id number] - Biomet Hip Primary Acetabular Components - 1 - Head Fem Biolox Option 40mm [id number] Implanted:Qty : 1 on 08/17/2011 at [facility] Hip Right: Hip [employer] 05/20/2021 [id number] / / [id number] Log [id number] - Biomet Hip Primary Acetabular Components - 1 - Stem Collar Por [id number] Implanted:Qty : 1 on 08/17/2011 at [facility] Hip Right: Hip [employer] 11/17/2020 [id number] / / [id number] Log [id number] - Biomet Hip Primary Acetabular Components - 1 - Slv Biolox Delta Optn Type 1 [id number] Implanted:Qty : 1 on 08/17/2011 at [facility] Hip Right: Hip [employer] 04/19/2021 [id number] / / [id number] Log [id number] - Biomet Hip Primary Acetabular Components - 1 - Screw Canc Lp 6.5x30mm [id number] Implanted:Qty : 1 on 08/17/2011 at [facility] Screw Right: Hip [employer] 07/19/2021 [id number] / / [id number] Log [id number] - Biomet Hip Primary Acetabular Components - 1 - Screw Canc Lp 6.5x25mm [id number] Implanted:Qty : 1 on 08/17/2011 at [facility] Screw Right: Hip [employer] 07/19/2020 [id number] / / [id number] Sealant Floseal W/ Adptr 10ml [id number] - [id number] Implanted:Qty : 1 on 09/04/2014 by Parminder Garrett MD at [facility] Sealant N/A: Spine Lumbar ROCHA- BIOS[employer]ENCE 09/18/2015 [id number] / / [id number] Head Cer Bioloxd Option 40mm [id number] Implanted:Qty : 1 on 10/02/2009 at [facility] Left: Hip [employer] 08/19/2019 650-1058 / / [id number] - [id number] Implanted:Qty : 1 on 10/02/2009 at [facility] Left: Hip 06/19/2019 [id number] / / [id number] Description:biolox option ta per adapter. minus 3 neck, type I taper sleeve,not part of total hip cap pricing,will be charged for separately. Insurance [employer] OPEN ACCESS Advance Directives For more information, please contact: [phone] * Full Code (Latest Code Status on File) Date Activated Date Inactivated Comments 09/04/2014 11:27 AM 09/06/2014 8:15 PM * Full Code Date Activated Date Inactivated Comments 09/04/2014 6:51 AM 09/04/2014 11:27 AM * Full Code Date Activated Date Inactivated Comments 07/19/2012 12:47 PM 07/22/2012 4:43 PM * Full Code Date Activated Date Inactivated Comments 07/19/2012 6:39 AM 07/19/2012 12:47 PM * Full Code Date Activated Date Inactivated Comments 08/16/2011 11:52 AM 08/19/2011 4:21 PM Care Teams Extractor And Wringer Operator Relationship Specialty Start Date End Date Kevin Jackman DO [address] [facility] [address] [place] [address] PCP - General 06/27/09
--- OUTSIDE RECORDS SUMMARY | 2025-04-25 09:58 | XMS_ITS | Encounter Summary ---
Author Organization [facility] Address 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 [place], [place] [address] Admit Date: 05/02/2008 [place] Sex: M Admit Prov: ROGELIO SNELL Date: 1950 Primary Care Prov: PCP, UNKNOWN CMRN: [id number] [facility] [address] [place] [address] IMAGING SERVICES Ordering Prov: N/A Accession Number: [id number] Interpretation Whole-body bone scan History: 58-year-old male with left hip pain Procedure: 30.7 mCi 99m-Tc MDP with anterior and posterior whole body images obtained at 3 hours. Findings: The kidneys are well visualized. Moderate degenerative changes of the left hip are noted. Mild degenerative changes of the right knee and base of right fifth metatarsal. Impression: Moderate degenerative changes of the left hip. . Dictated by: RYAN HERNANDEZ 05/02/2008 11:38 Electronically signed by: RYAN HERNANDEZ 05/02/2008 11:40 Procedure Note Ryan Hernandez MD - 05/02/[address] [address] Admit Date: 05/02/2008 [place] Sex: M Admit Prov: ROGELIO SNELL Date: 1950 Primary Care Prov: PCP, UNKNOWN CMRN: [id number] [facility]: [facility]: [id number] IMAGING SERVICES Ordering Prov: N/A Interpretation Whole-body bone scan History: 58-year-old male with left hip pain Procedure: 30.7 mCi 99m-Tc MDP with anterior and posterior wholebody images obtained at 3 hours. Findings: The kidneys are well visualized. Moderate degenerativechanges of the left hip are noted. Mild degenerative changes of the right kneeand base of right fifth metatarsal. Impression: Moderate degenerative changes of the left hip. . Dictated by: RYAN HERNANDEZ 05/02/2008 11:38 Electronically signed by: RYAN HERNANDEZ 05/02/2008 11:40 Rogelio Snell MD NM ORDERABLES Final Result documented in this encounter Visit Diagnoses Diagnosis Pain in joint, pelvic region and thigh documented in this encounter Care Teams Lap Grinder Relationship Specialty Start Date End Date Kevin Jackman DO [address] [facility] [address] [place] [address] PCP - General 06/27/09 documented as of this encounter
--- NOTE | 2025-04-25 12:00 | NEURO_ITS ---
Clinical note: Patient is 74-year-old with history of paresthesias in both feet and legs and lower back pain. No history of diabetes mellitus. Patient has had a surgery on the lumbar spine in the past. Patient also has had surgery on the knees and hips. On a brief examination no focal motor wasting or fasciculations are seen. Is referred to the details of EMG and nerve conduction study given below. Summary of findings: 1) Left and right peroneal motor distal latencies are prolonged and amplitudes are significantly decreased. Conduction velocities from fibular head to ankle were decreased on the left and normal on the right side. No slowing was noted across the fibular head. 2. Left and right tibial motor distal latency is prolonged on the right and normal on the left side with amplitudes are significantly decreased. Conduction velocity mildly decreased. 3. Right medial plantar sensory was absent however bilateral sural sensory distal latency is normal but amplitude is significantly decreased. 4. Left and right H reflex latencies were normal however amplitudes are significantly decreased. 5. EMG examination was performed wears various muscles examined and lower limbs including gluteal muscles. Paraspinal muscles were not examined since the patient had surgery on the lumbar spine. Mild denervation changes were seen in the right tensor fascial radha. Mild decreased recruitment was noted in the anterior tibial and medial gastrocnemius. Mild changes also noted in the left gluteus bib and tensor fascial radha. Impression: EMG and nerve conduction studies on lower limbs show followin. Evidence of moderate, sensory motor length-dependent axonal, peripheral neuropathy. Etiologic correlation is recommended 2. Evidence of bilateral chronic L5-S1 radiculopathy. Since the patient had surgery on lumbar spine in the past, these may be residual findings . These may contribute to loss of motor amplitude on peroneal and tibial motor studies. Clinical and radiographic correlation are recommended. Constantino Javier MD, FAAN, FAANEM Neurology and electrodiagnostic Medicine Nerve Conduction Studies Motor Nerve Results ? Latency Amplitude F-Lat Segment Distance CV Comment Site (ms) (mV) (ms) (cm) (m/s) Left Peroneal (EDB) Motor Ankle 6.2 0.52 Bel Fib Head 15.7 0.64 Bel Fib Head-Ankle 295 31 Pop Fossa 17.1 0.55 Pop Fossa-Bel Fib Head 80 57 Right Peroneal (EDB) Motor Ankle 7.1 0.08 Bel Fib Head 12.3 0.02 Bel Fib Head-Ankle 270 52 Pop Fossa 14.2 0.04 Pop Fossa-Bel Fib Head 80 42 Left Tibial (AHB) Motor Ankle 4.7 1.84 Knee 15.7 1.27 Knee-Ankle 395 36 Right Tibial (AHB) Motor Ankle 7.5 2.2 Knee 18.2 1.78 Knee-Ankle 405 38 Sensory Nerve Results ? Latency (Peak) Amplitude (P-P) Segment Distance CV Comment Site (ms) (?V) (cm) (m/s) Right Medial Plantar (Ortho) Sensory Great Toe-Med Mall NR NR Great Toe-Med Mall 110 NR Left Sural Sensory Calf-Lat Mall 3.8 2 Calf-Lat Mall 120 32 Right Sural Sensory Calf-Lat Mall 3.8 3 Calf-Lat Mall 120 32 H-Reflex Results ? M-Lat H Lat H Peak-Peak Amp M Peak-Peak Amp H-M Lat Site (ms) (ms) mV mV (ms) Left Tibial H-Reflex Pop Fossa 5.9 33.8 0.21 5.0 27.9 Right Tibial H-Reflex Pop Fossa 6.0 33.4 0.09 7.3 27.4 Electromyography ?Side Muscle Nerve Ins Act Fibs Psw Amp Dur Recrt Comment Right BicepsFemS Sciatic Nml Nml Nml Nml Nml Nml Right Semimembranosus Sciatic Nml Nml Nml Nml Nml Nml Right AntTibialis Dp Br Fibular Nml Nml Nml Nml Nml +1 Right Gastroc Tibial Nml Nml Nml Decr Nml +2 Right VastusMed Femoral Nml Nml Nml Nml Nml Nml Right RectFemoris Femoral Nml Nml Nml Nml Nml Nml Right GluteusMax InfGluteal Nml Nml Nml Nml Nml Nml Right TensorFascLat SupGluteal Nml Nml 1+ Incr >12ms +1 Left BicepsFemS Sciatic Nml Nml Nml Nml Nml Nml Left Semimembranosus Sciatic Nml Nml Nml Nml Nml Nml Left AntTibialis Dp Br Fibular Nml Nml Nml Incr >12ms +3 Left Gastroc Tibial Nml Nml Nml Decr Nml +1 Left VastusMed Femoral Nml Nml Nml Nml Nml Nml Left RectFemoris Femoral Nml Nml Nml Nml Nml Nml Left GluteusMax InfGluteal Nml Nml Nml Nml Nml +1 Left TensorFascLat SupGluteal Nml Nml Nml Incr >12ms +2
== END 2025-04-25 09:51 | disposition home or self-care (01) ==
LOC: ANHNEURO 09:51
PROVIDERS: PCP Internal Medicine; Visit Provider Psychiatry & Neurology Neurology
DX: G62.9 Polyneuropathy, unspecified (principal); E11.9 Type 2 diabetes mellitus without complications
CPT/HCPCS: 95886; 95910